=== PATIENT | male | born 1975 | race Caucasian/White ===

== ENCOUNTER 2021-09-13 02:44 | Emergency (ER) | payer MEDICAID ==
[~2021-09-13] VITALS: Ht 160 cm; Wt 67.1 kg
[2021-09-13 02:47] VITALS: BP_SYST 136
[2021-09-13] MEDS ORDERED: ONDANSETRON 4 MG ODT TAB PO ONE (03:45)
[2021-09-13] MEDS ORDERED: ACETAMINOPHEN 500 MG TABLET PO ONE (03:45)
[2021-09-13] MEDS ORDERED: SULFAMETHOXAZOLE/TRIMETHOPR DS 1 TABLET PO ONE (03:45)
[2021-09-13] MEDS ORDERED: ONDANSETRON 4 MG ODT TAB ONE (03:47)
[2021-09-13] MEDS ORDERED: SULF1TAB48 PO ×2 (05:03→09:38)
[2021-09-13] MEDS ORDERED: IBUP-1971 PO (05:03)
[2021-09-13] MEDS ORDERED: IBUPROFEN 800 MG TABLET PO ONE (05:30)
[2021-09-13 06:37] VITALS: BP_SYST 136
[2021-09-13] MEDS ORDERED: IBUP-1969 PO (09:38)
[2021-09-13] MEDS ORDERED: LIP40 PO (09:38)
[2021-09-13] MEDS ORDERED: GABA800T PO (09:38)
== END 2021-09-13 06:37 | disposition home or self-care (01) ==
LOC: SED 02:44
DX: M79.662 Pain in left lower leg (principal); Z88.1 Allergy status to other antibiotic agents; Z79.899 Other long term (current) drug therapy
CPT/HCPCS: 99285; Q0162

== ENCOUNTER 2021-09-13 09:06 | Emergency (ER) | payer MEDICAID ==
[~2021-09-13] VITALS: Ht 170.2 cm; Wt 70.3 kg
[~2021-09-13 09:06] MED LIST: IBUP-1971 PO; SULF1TAB48 PO
[2021-09-13 09:20] VITALS: BP_SYST 140
--- NOTE | 2021-09-13 09:20 | NUR ---
Pt came into ER for prescription refill of lipitor, gabapentin, and aspirin. Pt was seen last night by Dr. Rodriguez and discharged with bactrim and motrin for left lower extremity cellulitis. Pt used IV meth last night. Pt is resting in [facility] no distress noted at this time. Pt speaking full sentences with rapid speech pattern.
--- NOTE | 2021-09-13 09:20 | NUR ---
Patient to ER bed hallway 1 to gown for evaluation. Side rails up.
--- NOTE | 2021-09-13 09:21 | NUR ---
ER at bedside examining patient.
--- NOTE | 2021-09-13 09:28 | NUR ---
Pt sitting up drawing in notebook with colored pens. No distress noted at this time.
[2021-09-13] MEDS ORDERED: IBUP-1969 PO (09:38)
[2021-09-13] MEDS ORDERED: GABA800T PO (09:38)
[2021-09-13] MEDS ORDERED: LIP40 PO (09:38)
[2021-09-13] MEDS ORDERED: SULF1TAB48 PO (09:38)
[2021-09-13 09:45] VITALS: BP_SYST 140
--- NOTE | 2021-09-13 09:46 | NUR ---
Patient given written and verbal discharge instructions and verbalizes understanding. ER MD discussed with patient the results and treatment provided. Patient in stable condition. ID arm band removed. Rx of gabapentin, lipitor given. Patient educated on pain management and to follow up with PMD. Pain Scale 0/10. Opportunity for questions provided and answered. Medication side effect fact sheet provided.
== END 2021-09-13 09:45 | disposition home or self-care (01) ==
LOC: SED 09:06
DX: L03.116 Cellulitis of left lower limb (principal); Z88.1 Allergy status to other antibiotic agents; Z79.899 Other long term (current) drug therapy; Z76.0 Encounter for issue of repeat prescription
CPT/HCPCS: 99281

== ENCOUNTER 2022-01-13 21:35 | Emergency (ER) | payer MEDICAID ==
[~2022-01-13] VITALS: Ht 175.3 cm; Wt 95.3 kg
[~2022-01-13 21:35] MED LIST changes: +GABA800T PO; +IBUP-1969 PO; +LIP40 PO
[2022-01-13 21:40] VITALS: BP_SYST 118
--- NOTE | 2022-01-13 21:40 | NUR ---
Patient triaged and placed in waiting room. VSS and patient appears in no acute distress at this time., awaiting available bed, and MD notified of need for MSE.
--- NOTE | 2022-01-13 22:35 | NUR ---
ER examining patient in the triage room.
--- NOTE | 2022-01-13 22:50 | NUR ---
CALL PT NAME IN THE WR.NO ANSWER.
--- NOTE | 2022-01-13 23:00 | NUR ---
CALL PT NAME IN THE WR.NO ANSWER.
[2022-01-13 23:30] VITALS: BP_SYST 116
[2022-01-13] MEDS ORDERED: IBUPROFEN 800 MG TABLET PO ONE (23:30)
--- NOTE | 2022-01-13 23:30 | NUR ---
Found pt sleeping in the tent [facility] .slot technician notified.
--- NOTE | 2022-01-13 23:45 | NUR ---
pt refused Ibuprofen.Dr Rodriguez notified.
--- NOTE | 2022-01-14 | NUR ---
Per sales technician pt refuse CT.Dr Rodriguez notified.
--- NOTE | 2022-01-14 00:30 | NUR ---
Brice donaldson.Dr Rodriguez notified.
== END 2022-01-14 00:30 | disposition left against medical advice (07) ==
LOC: SED 21:35
DX: S09.90XA Unspecified injury of head, initial encounter (principal); Z88.1 Allergy status to other antibiotic agents; Z79.899 Other long term (current) drug therapy; Y04.0XXA Assault by unarmed brawl or fight, initial encounter; Y93.89 Activity, other specified; Y92.89 Other specified places as the place of occurrence of the external cause; Y99.8 Other external cause status
CPT/HCPCS: 99281

== ENCOUNTER 2022-01-14 12:44 | Emergency (ER) | payer MEDICAID ==
[~2022-01-14] VITALS: Ht 175.3 cm; Wt 88.5 kg
[2022-01-14 13:05] VITALS: BP_SYST 124
--- NOTE | 2022-01-14 13:09 | NUR ---
Patient triaged and placed in waiting room. VSS and patient appears in no acute distress at this time. Accompanied by EMS, awaiting available bed, and MD notified of need for MSE.
--- NOTE | 2022-01-14 13:12 | NUR ---
Patient to ER bed 04 to gown for evaluation. Side rails up.
--- NOTE | 2022-01-14 13:15 | NUR ---
Pt brought by Kayla [id number], pt presents to ER with neck pain, states he fell from stairs, no KO, skin pink and warm, cap refill <3, VSS, respirations even and unlabored.
--- NOTE | 2022-01-14 13:30 | NUR ---
Dr. Helton at bedside.
[2022-01-14 15:38] LABS: RED CELL DISTRIBUTION WIDTH 14.5 % (9.0-15.0); WHITE BLOOD COUNT (AUTO) 5.4 K/uL (4.8-10.8)
[2022-01-14 15:46] LABS: BASOPHILS % (AUTO) 0.1 % (0.0-2.0); EOSINOPHILS % (AUTO) 0.5 % (0.0-4.0); HEMATOCRIT 37.7 % (36-54); HEMOGLOBIN 12.6 g/dL (14.0-18.0); LYMPHOCYTES # (AUTO) 0.9 K/uL (1.0-5.5); LYMPHOCYTES % (AUTO) 17.2 % (20.5-51.5); MEAN CORPUSCULAR HEMOGLOBIN 29 pg (27-31); MEAN CORPUSCULAR HGB CONC 33 % (32-36); MEAN CORPUSCULAR VOLUME 88 fL (79.0-98.0); MONOCYTES # (AUTO) 0.3 K/uL (0.0-1.0); MONOCYTES % (AUTO) 6.2 % (1.7-9.3); NEUTROPHILS # (AUTO) 4.1 K/uL (1.8-7.7); PLATELET COUNT (AUTO) 206 K/uL (130-430); RED BLOOD CELL COUNT(AUTO) 4.29 MIL/uL (4.2-6.2)
[2022-01-14 15:48] LABS: CALCIUM 8.1 mg/dL (8.4-11.0); CREATININE 0.79 mg/dL (0.55-1.30); POTASSIUM 3.1 mmol/L (3.5-5.1)
[2022-01-14 15:56] LABS: ALBUMIN 3.4 g/dL (3.4-4.8); TOTAL BILIRUBIN 0.5 mg/dL (0.0-1.0)
--- NOTE | 2022-01-14 16:25 | NUR ---
Pt still refusing to provide urine at this time.
[2022-01-14 16:37] VITALS: BP_SYST 135
--- NOTE | 2022-01-14 16:41 | NUR ---
Patient given written and verbal discharge instructions and verbalizes understanding. ER MD discussed with patient the results and treatment provided. Patient in stable condition. ID arm band removed. Patient educated on pain management and to follow up with PMD. Pain Scale . Opportunity for questions provided and answered. Medication side effect fact sheet provided.
== END 2022-01-14 16:41 | disposition home or self-care (01) ==
LOC: SED 12:44
DX: S09.90XA Unspecified injury of head, initial encounter (principal); E11.9 Type 2 diabetes mellitus without complications; E78.00 Pure hypercholesterolemia, unspecified; F41.9 Anxiety disorder, unspecified; Z88.1 Allergy status to other antibiotic agents; Z79.899 Other long term (current) drug therapy; W22.8XXA Striking against or struck by other objects, initial encounter; Y93.89 Activity, other specified; Y92.89 Other specified places as the place of occurrence of the external cause; Y99.8 Other external cause status
CPT/HCPCS: 36415; 70450-TC; 72125-TC; 76376; 80053; 82962; 85025; 99284

== ENCOUNTER 2022-01-16 02:36 | Emergency (ER) | payer MEDICAID ==
[~2022-01-16] VITALS: Ht 152.4 cm; Wt 88.5 kg
[2022-01-16 04:06] VITALS: BP_SYST 156
[2022-01-16] MEDS ORDERED: IBUPROFEN 600 MG TABLET PO ONE (04:15)
--- NOTE | 2022-01-16 04:30 | NUR ---
patient placed in room 4 . Placed blood pressure machine and pulse oximeter. To gown for exam. Side rails up. Report given to Dr. Leo.
[2022-01-16] MEDS ORDERED: IBUPROFEN 600 MG TABLET ONE (04:39)
--- NOTE | 2022-01-16 04:46 | NUR ---
Motrin 600mg was given, pt tolerated well.
[2022-01-16] MEDS ORDERED: NAPR-690 PO (05:01)
--- NOTE | 2022-01-16 05:45 | NUR ---
Patient given written and verbal discharge instructions and verbalizes understanding. ER MD discussed with patient the results and treatment provided. Patient in stable condition. ID arm band removed. IV catheter removed intact and dressing applied, no active bleeding. Rx given. Patient educated on pain management and to follow up with PMD. Pain Scale . Opportunity for questions provided and answered.
== END 2022-01-16 05:08 | disposition home or self-care (01) ==
LOC: SED 02:36
DX: S13.4XXA Sprain of ligaments of cervical spine, initial encounter (principal); Z88.0 Allergy status to penicillin; X58.XXXA Exposure to other specified factors, initial encounter; Y93.89 Activity, other specified; Y92.89 Other specified places as the place of occurrence of the external cause; Y99.8 Other external cause status
CPT/HCPCS: 99282; 99283